=== PATIENT | male | born 1965 | race Two or more races ===

== ENCOUNTER 2024-10-22 14:09 | Emergency (ER) | payer OTHER ==
[~2024-10-22] VITALS: Ht 177.8 cm; Wt 83.0 kg
[~2024-10-22 14:09] MED LIST: AMLO10TA80 PO; CLOP75TA33 PO
[2024-10-22 14:10] VITALS: BP 148/72; PULSE 88; RESP 18; TEMP 98.3; O2SAT 98
== END 2024-10-22 22:53 | disposition left against medical advice (07) ==
LOC: ER 14:09
DX: R44.0 Auditory hallucinations (principal); Z53.21 Procedure and treatment not carried out due to patient leaving prior to being seen by health care provider